=== PATIENT | male | born 1955 | race Asian ===

== ENCOUNTER 2018-01-22 06:12 | Day surgery (SDC) | payer OTHER ==
[2018-01-22] MEDS ORDERED: PERCOCET 5-3251 EACH PO (11:15)
== END 2018-01-22 13:30 | disposition home or self-care (01) ==
LOC: CIR.AMB 06:12 → EDBD 14:00
DX: C20 Malignant neoplasm of rectum (principal)
CPT/HCPCS: 36561; C1751

== ENCOUNTER 2018-06-02 09:45 | Inpatient (IN) | payer OTHER ==
[~2018-06-02] VITALS: Ht 165.1 cm; Wt 56.2 kg
[~2018-06-02 09:45] MED LIST: PERCOCET 5-3251 EACH PO
[2018-06-02] MEDS ORDERED: NOVOLOG100 UNIT/1 (15:11)
[2018-06-17] MEDS ORDERED: PERCOCET 5-3251 EACH PO ×2 (15:06→15:17)
[2018-06-17] MEDS ORDERED: INTEGRA PLUS C1 EACH PO ×2 (15:06→15:17)
[2018-06-17] MEDS ORDERED: OMEPRAZOLE20 M1 PO ×2 (15:06→15:17)
[2018-06-17] MEDS ORDERED: IMODIUM A-D2 M2 PO (15:15)
== END 2018-06-17 19:03 | disposition home or self-care (01) | DRG 331 ==
LOC: SURG 06-08 05:15 → O/R 06-08 08:00 → SURG 06-08 08:00
PROVIDERS: Surgery
PROC: 07TC4ZZ Resection of Pelvis Lymphatic, Percutaneous Endoscopic Approach (ICD-10-PCS; 2018-06-08)
PROC: 0D1B4Z4 Bypass Ileum to Cutaneous, Percutaneous Endoscopic Approach (ICD-10-PCS; 2018-06-08)
PROC: 0DJD8ZZ Inspection of Lower Intestinal Tract, Via Natural or Artificial Opening Endoscopic (ICD-10-PCS; 2018-06-08)
PROC: 0DTN4ZZ Resection of Sigmoid Colon, Percutaneous Endoscopic Approach (ICD-10-PCS; principal; 2018-06-08 05:15)
PROC: 3E0F7GC Introduction of Other Therapeutic Substance into Respiratory Tract, Via Natural or Artificial Opening (ICD-10-PCS; 2018-06-15)
DX: C19 Malignant neoplasm of rectosigmoid junction (principal); R59.0 Localized enlarged lymph nodes; M62.81 Muscle weakness (generalized); D64.89 Other specified anemias; E10.69 Type 1 diabetes mellitus with other specified complication; Z74.01 Bed confinement status

== ENCOUNTER 2018-11-25 09:29 | Outpatient (CLI) | payer OTHER ==
[~2018-11-25 09:29] MED LIST changes: +IMODIUM A-D2 M2 PO; +INTEGRA PLUS C1 EACH PO; +NOVOLOG100 UNIT/1; +OMEPRAZOLE20 M1 PO
== END 2018-11-25 09:39 | disposition home or self-care (01) ==
LOC: RX STUDY 09:29
DX: C20 Malignant neoplasm of rectum (principal); R59.0 Localized enlarged lymph nodes; K62.5 Hemorrhage of anus and rectum

== ENCOUNTER 2019-06-27 05:30 | Day surgery (SDC) | payer OTHER | END 2019-06-27 09:15 | disposition home or self-care (01) | LOC: AMB-ENDOS 05:30 | DX: C20 Malignant neoplasm of rectum (principal) ==